=== PATIENT | male | born 1995 | race Caucasian/White ===

== ENCOUNTER 2023-03-24 21:01 | Emergency (ER) | payer OTHER ==
[~2023-03-24] VITALS: Ht 172.7 cm; Wt 69.0 kg
[2023-03-24] MEDS ORDERED: SUBLOCADE100 MG/0.5 SUB-Q (21:32)
[2023-03-24] MEDS ORDERED: ABILIFY2 MG PO (21:32)
[2023-03-24] MEDS ORDERED: STOOL SOFTENER250 MG PO (21:33)
[2023-03-24] MEDS ORDERED: DULCOLAX5 MG PO (21:34)
[2023-03-24] MEDS ORDERED: MELOXICAM15 MG PO (21:42)
[2023-03-24 21:56] VITALS: BP 126/85
== END 2023-03-24 21:56 | disposition home or self-care (01) ==
LOC: ED 21:01
DX: S46.911A Strain of unspecified muscle, fascia and tendon at shoulder and upper arm level, right arm, initial encounter (principal); W51.XXXA Accidental striking against or bumped into by another person, initial encounter; Z79.899 Other long term (current) drug therapy
CPT/HCPCS: 73030; 99283-25; A9270